=== PATIENT | female | born 1955 | race African-American/Black ===

== ENCOUNTER → 2017-01-25 | Outpatient (CLI) | payer OTHER ==
--- NOTE | 2017-01-25 12:13 | KCIC ---
EXAM: Bilateral diagnostic mammogram; bilateral breast sonogram. HISTORY: 61-year-old female presents for follow-up evaluation of nodularity within the right breast and architectural distortion and calcifications within the left breast demonstrated on a diagnostic mammogram and sonogram dated 03/01/2016. The patient did not return at the recommended 6 month follow up interval. This is a nearly 1 year follow-up. TECHNIQUE: Full-field digital craniocaudal and mediolateral oblique views of both breasts are obtained for evaluation. Computer aided detection with [employer] software version 9.3 was applied. Sonographic imaging of both breasts including all 4 quadrants and the retroareolar regions was performed. COMPARISON: Sonogram dated 03/01/2016 and mammograms dated 03/01/2016 and 01/05/2016. BREAST PARENCHYMAL DENSITY: Level C - Heterogeneously dense. FINDINGS: There is no new suspicious mass, microcalcification or region of architectural distortion. There is stable areas of asymmetry and nodularity within both breasts, allowing for differences in technique. There are benign-appearing calcifications throughout both, including a cluster calcifications within the superior left breast. Sonographic imaging of the right breast demonstrates dilated ducts within the retroareolar location, primarily at the 1:00 position. No intraductal lesion is seen. There is no additional suspicious finding within the right breast. Sonographic imaging of the left breast demonstrates dilated ducts primarily within the 1:00 position. There is a 5 mm oval hypoechoic lesion at the 2:30 o'clock position 6 cm from the nipple, stable compared to the prior study and likely a complex cyst or benign fibrocystic lesion. No suspicious lesion is seen within the left breast. IMPRESSION: 1. Stable areas of focal asymmetry and nodularity within both breasts and stable benign calcifications within the left breast, the former of which likely correspond with focally dilated ducts within both breasts and a complex cyst or benign fibrocystic lesion within the left breast demonstrated sonographically. There is no new suspicious mammographic or sonographic finding. The year of stability favors benignity. 2. BI-RADS Category 2: Benign finding(s). Annual mammography is recommended. If your mammogram demonstrates that you have dense breast tissue, which could hide abnormalities, and if you have other risk factors for breast cancer that have been identified, you might benefit from supplemental screening tests that may be suggested by your ordering physician. Dense breast tissue, in and of itself, is a relatively common condition. This information is not provided to cause undue concern, but rather to raise your awareness and to promote discussion with your physician regarding the presence of other risk factors, in addition to dense breast tissue. A report of your mammography results will be sent to you and your physician. You should contact your physician if you have any questions or concerns regarding this report. Mammography is a sensitive method for finding small breast cancers, but it does not detect them all and is not a substitute for careful clinical examination. A negative mammogram does not negate a clinically suspicious finding and should not result in delay in biopsying a clinically suspicious abnormality. PQRS compliance statement - Patient information was entered into a reminder system with a target due date for the next mammogram. "Our facility is accredited by the [employer] Mammography [employer]." Electronically signed by: Liz Alvarado MD (01/25/2017 12:11 PM) [id number]
== END | disposition home or self-care (01) ==
LOC: KCIC MAMMO 09:56
PROVIDERS: ATTEND Family Medicine
DX: N63.20 Unspecified lump in the left breast, unspecified quadrant (principal)
CPT/HCPCS: 76641; G0204; 77066

== ENCOUNTER → 2019-10-09 | Outpatient (CLI) | payer OTHER ==
--- NOTE | 2019-10-09 16:32 | KCIC ---
Bilateral digital screening mammograms: Reason for examination: Routine screening. Comparison is made to previous studies dated back to 01/05/2016. Interpretation was made with the benefit of CAD. The skin and nipples show no abnormalities. No abnormal axillary lymph nodes are seen. The breast parenchyma is extremely dense. (Breast density: Category D) There continue to be patchy areas of nodular parenchymal asymmetry bilaterally which are stable. There are scattered benign-appearing calcifications again seen which are stable. There are no new dominant masses, suspicious calcifications or architectural distortion. Impression: No evidence of malignancy. Recommend routine screening. Your patient's mammogram demonstrates that she has dense breast tissue (breast density category C or D), which could hide abnormalities, and if she has other risk factors for breast cancer that have been identified, she might benefit from supplemental screening tests that may be suggested by you as her ordering physician. Dense breast tissue, in and of itself, is a relatively common condition. Therefore, this information is not provided to cause undue concern, but rather to raise your awareness and to promote discussion with your patient regarding the presence of other risk factors, in addition to dense breast tissue. Your patient's mammography results will be sent to her. BI-RADS Category 2: Benign. "Our facility is accredited by the [employer] Mammography [employer]." This patient's information has been entered into a reminder system for the patient to be notified with the results of her examination and a target date for the next mammogram. Electronically signed by: Daily St MD (10/09/2019 4:29 PM) [email or web address]
== END | disposition home or self-care (01) ==
LOC: KCIC MAMMO 09:29
PROVIDERS: ATTEND Family Medicine
DX: Z12.31 Encounter for screening mammogram for malignant neoplasm of breast (principal); N64.89 Other specified disorders of breast
CPT/HCPCS: 77067